=== PATIENT | female | born 1970 | race Caucasian/White ===

== ENCOUNTER 2016-09-16 08:29 | Emergency (ER) | payer MEDICARE, MEDICAID ==
[~2016-09-16] VITALS: Ht 170.2 cm; Wt 64.4 kg
--- NOTE | 2016-09-16 09:14 | RAD ---
Right hip, 2 views, 09/16/2016: History: Trauma, pain There is a comminuted fracture of the right iliac bone superolaterally. The hip joint is well maintained. No proximal femoral fracture is identified. IMPRESSION: Comminuted right iliac bone fracture.
[2016-09-16] MEDS ORDERED: IPRATRPIUM/ALBUTEROL 0.5/2.5MG 3 ML NEBU. NEB ONE (09:15)
[2016-09-16] MEDS ORDERED: KETOROLAC TROMETHAMINE 60 MG/2 ML INJ. IM ONE (09:15)
[2016-09-16 09:31] LABS: BASO % 1 % (0-3); EOS % 0 % (0-3); HEMATOCRIT 38.6 % (36.0-47.0); HEMOGLOBIN 13.4 g/dL (12.0-15.5); LYMPH # 0.2 x10^3/uL (1.0-4.8); LYMPH % 11 % (24-48); MEAN CORPUSCULAR HEMOGLOBIN 35 pg (25-35); MEAN CORPUSCULAR HGB CONC 35 g/dL (31-37); MEAN CORPUSCULAR VOLUME 100 fL (79-100); MONO % 6 % (0-9); NEUT % 81 % (31-73); PLATELET COUNT 99 x10^3/uL (140-400); RED BLOOD COUNT 3.86 x10^6/uL (3.50-5.40); RED CELL DISTRIBUTION WIDTH 16.4 % (11.5-14.5); WHITE BLOOD COUNT 2.2 x10^3/uL (4.0-11.0)
[2016-09-16] MEDS: FENTANYL PF 100 MCG/2 ML VIAL. IV PRN ×3 (09:31→12:30)
[2016-09-16 09:49] LABS: CALCIUM 8.8 mg/dL (8.5-10.1); CREATININE 0.6 mg/dL (0.6-1.0); GFR 108.1; POTASSIUM 3.7 mmol/L (3.5-5.1)
[2016-09-16 09:54] LABS: ALBUMIN 3.7 g/dL (3.4-5.0); ALBUMIN/GLOBULIN RATIO 0.9 (1.0-1.7); TOTAL BILIRUBIN 0.6 mg/dL (0.2-1.0); TOTAL PROTEIN 7.8 g/dL (6.4-8.2)
--- NOTE | 2016-09-16 10:59 | PHYS DOC ---
Past Medical History Past Medical History: Anxiety, Asthma, Bipolar, Depression, Seizure, Other Additional Past Medical Histor: LUNG DEFECT, CHRONIC BACK PAIN Past Surgical History: No Surgical History Alcohol Use: Occasionally Drug Use: None Adult General Chief Complaint Chief Complaint: HIP PAIN HPI HPI Patient is a 46 year old female brought to the ED from home by ambulance with the complaint of severe pain in the right hip area. Patient states yesterday she was going up steps into her home, she tripped and fell, she struck her right hip area on a step. She heard and felt a "pop" and it was very painful. She was not able to ambulate, had to crawl up the stairs and was helped into bed. This morning she was not able to get out of bed because of the pain and had to call 911. Patient denies injury elsewhere. She denies head injury. She denies previous injury to the right hip. Patient is a smoker. She has a history of asthma or wheezing. She also complains right now that she is short of air. No medications, allergic to sulfa. No PCP. Review of Systems Review of Systems Constitutional: Denies fever or chills [] Eyes: Denies change in visual acuity, redness, or eye pain [] HENT: Denies nasal congestion or sore throat [] Respiratory: Complains of shortness of breath and wheezing at this time. Cardiovascular: Denies chest pain GI: Denies abdominal pain, nausea, vomiting, bloody stools or diarrhea [] : Denies dysuria or hematuria [] Musculoskeletal: Right hip pain as in history of present illness Integument: Denies rash or skin lesions [] Neurologic: Denies headache, focal weakness or sensory changes [] Current Medications Current Medications Current Medications Medications (Trade) Dose Ordered Sig/Marina Start Time Stop Time Status Last Admin Dose Admin Albuterol/ Ipratropium (Duoneb) 3 ml 1X ONCE 09/16/16 09:15 09/16/16 09:16 DC 09/16/16 09:25 3 ML Fentanyl Citrate (Fentanyl 2ml Vial) 50 mcg PRN Q15MIN PRN 09/16/16 09:15 09/16/16 12:52 DC 09/16/16 12:30 50 MCG Ketorolac Tromethamine (Toradol Im) 60 mg 1X ONCE 09/16/16 09:15 09/16/16 09:15 DC Allergies Allergies Allergies Coded Allergies Type Severity Reaction Last Updated Verified Sulfa (Sulfonamide Antibiotics) Allergy Unknown Hives 09/22/13 Yes Physical Exam Physical Exam Constitutional: Well developed, well nourished, alert, mentating normally, yelling intermittently in pain, does appear mildly dyspneic. HENT: Normocephalic, atraumatic, bilateral external ears normal, poor dentition orally, nose normal. [] Eyes: conjunctiva normal, no discharge. [] Neck: Normal range of motion, no stridor. [] Cardiovascular:Heart rate regular rhythm, no murmur [] Lungs & Thorax: Good air movement throughout with expiratory wheezes present in all lung finn Abdomen: Bowel sounds normal, soft, no tenderness Skin: Warm, dry, no erythema, no rash. [] Back: No tenderness, no CVA tenderness. [] Extremities: Bilateral upper extremities and left lower extremity without tenderness or deformity. Right hip tender to palpation over the lateral aspect of the superior pelvis area. Lower over the hip joint is less tender. Patient is not able to tolerate range of motion testing of a right hip but she does A most comfortably supine with her right hip and right knee both flexed. Right knee has a bruise but nontender to palpation without deformity or effusion. Right foot is warm with good sensation and capillary refill less than 2 seconds. Neurologic: Alert and oriented X 3, normal motor function, normal sensory function, no focal deficits noted. [] [] Current Patient Data Vital Signs Vital Signs Date Time Temp Pulse Resp B/P Pulse Ox O2 Delivery O2 Flow Rate FiO2 09/16/16 11:00 104 20 165/89 93 Room Air 09/16/16 08:29 98.3 98.3 Lab Values Laboratory Tests Test 09/16/16 09:17 White Blood Count 2.2x10^3/uL (4.0-11.0) L Red Blood Count 3.86x10^6/uL (3.50-5.40) Hemoglobin 13.4g/dL (12.0-15.5) Hematocrit 38.6% (36.0-47.0) Mean Corpuscular Volume 100fL (79-100) Mean Corpuscular Hemoglobin 35pg (25-35) Mean Corpuscular Hemoglobin Concent 35g/dL (31-37) Red Cell Distribution Width 16.4% (11.5-14.5) H Platelet Count 99x10^3/uL (140-400) L Neutrophils (%) (Auto) 81% (31-73) H Lymphocytes (%) (Auto) 11% (24-48) L Monocytes (%) (Auto) 6% (0-9) Eosinophils (%) (Auto) 0% (0-3) Basophils (%) (Auto) 1% (0-3) Neutrophils # (Auto) 1.8x10^3uL (1.8-7.7) Lymphocytes # (Auto) 0.2x10^3/uL (1.0-4.8) L Monocytes # (Auto) 0.1x10^3/uL (0.0-1.1) Eosinophils # (Auto) 0.0x10^3/uL (0.0-0.7) Basophils # (Auto) 0.0x10^3/uL (0.0-0.2) Segmented Neutrophils % 78% (35-66) H Band Neutrophils % 8% (0-9) Lymphocytes % 13% (24-48) L Monocytes % 1% (0-10) Platelet Estimate Decreased (ADEQUATE) Sodium Level 136mmol/L (136-145) Potassium Level 3.7mmol/L (3.5-5.1) Chloride Level 97mmol/L (98-107) L Carbon Dioxide Level 27mmol/L (21-32) Anion Gap 12 (6-14) Blood Urea Nitrogen 3mg/dL (7-20) L Creatinine 0.6mg/dL (0.6-1.0) Estimated GFR (Cockcroft-Gault) 108.1 BUN/Creatinine Ratio 5 (6-20) L Glucose Level 98mg/dL (70-99) Calcium Level 8.8mg/dL (8.5-10.1) Total Bilirubin 0.6mg/dL (0.2-1.0) Aspartate Amino Transferase (AST) 46U/L (15-37) H Alanine Aminotransferase (ALT) 22U/L (14-59) Alkaline Phosphatase 77U/L (46-116) Total Protein 7.8g/dL (6.4-8.2) Albumin 3.7g/dL (3.4-5.0) Albumin/Globulin Ratio 0.9 (1.0-1.7) L Laboratory Tests 09/16/16 09:17 Laboratory Tests 09/16/16 09:17 EKG EKG [] Radiology/Procedures Radiology/Procedures X-rays of the right hip read by the radiologist. The right hip shows no fracture. There is a comminuted fracture of the right iliac bone. [] Course & Med Decision Making Course & Med Decision Making Pertinent Labs and Imaging studies reviewed. (See chart for details) 46-year-old female presents with severe right hip area pain after a fall yesterday, inability to ambulate. She was given some IV pain medicine. X-rays show a comminuted fracture of the right iliac bone superolaterally. I discussed the case with Dr. Earl, on-call for orthopedics, who also reviewed the x- rays. He told me that with this type of pelvic rim fracture, the patient may require surgery. She also needs a CT scan of the pelvis and right hip area for more detailed evaluation. The acetabulum may be involved. Orthopedics here at [facility] does not have the type of table that is required for surgery on the pelvis of this type. Dr. Earl recommended to transfer the patient to a facility that can provide pelvic surgery. 1023: I called the transfer line and spoke with the trauma transfer nurse. She called me back and accepted the patient on behalf of Dr. Dhaliwal. They do not have a bed at the moment but will be getting a bed assignment for the patient. I discussed with the patient that she will need to be transferred and why, she is agreeable to that, transfer arrangements were made, paperwork was completed. X-rays were sent to . The patient is hemodynamically stable. Labs do show low white count and low platelets, but not anemia or other significant acute abnormalities. [] Dragon Disclaimer Dragon Disclaimer This electronic medical record was generated, in whole or in part, using a voice recognition dictation system. Departure Departure Impression: Primary Impression: Pelvis fracture, right Disposition: 02 TRANSFER [facility] Condition: STABLE Referrals: NO PCP (PCP) AMANDA BURTON MD Sep 16, 2016 10:59
[2016-09-16 11:00] VITALS: BP 165/89
[2016-09-16 11:37] LABS: PLT ESTIMATE DECREASED (ADEQUATE)
== END 2016-09-16 12:40 | disposition short-term general hospital (02) ==
LOC: ER 08:29
DX: S32.301A Unspecified fracture of right ilium, initial encounter for closed fracture (principal); F31.9 Bipolar disorder, unspecified; J45.909 Unspecified asthma, uncomplicated; F41.9 Anxiety disorder, unspecified; G89.29 Other chronic pain; Z88.2 Allergy status to sulfonamides; W01.0XXA Fall on same level from slipping, tripping and stumbling without subsequent striking against object, initial encounter; Y93.89 Activity, other specified; Y99.8 Other external cause status; Y92.89 Other specified places as the place of occurrence of the external cause
CPT/HCPCS: 36415; 51702; 73502; 80053; 85007; 85027; 94250; 94640; 96374; 96376; 99285; J3010; J7620

== ENCOUNTER 2019-05-03 16:06 | Emergency (ER) | payer MEDICARE, MEDICAID ==
[~2019-05-03] VITALS: Ht 172.7 cm; Wt 64.4 kg
[~2019-05-03 16:06] MED LIST: HYDR-3164 PO; NAPR-683 PO; PENI500T PO
[2019-05-03 16:31] VITALS: BP 95/63
[2019-05-03] MEDS ORDERED: CHLO15MO2 SWSP (16:57)
[2019-05-03] MEDS ORDERED: PENI500T PO (16:57)
[2019-05-03] MEDS ORDERED: NAPR-514 PO (16:57)
--- NOTE | 2019-05-03 16:57 | PHYS DOC ---
Past Medical History Past Medical History: Anxiety, Asthma, Bipolar, Depression, Seizure, Other Additional Past Medical Histor: LUNG DEFECT, CHRONIC BACK PAIN Past Surgical History: No Surgical History Alcohol Use: Occasionally Drug Use: None Adult General Chief Complaint Chief Complaint: DENTAL PROBLEM HPI HPI Patient is a 48 year old female who presents to the emergency department with complaints of left upper dental pain that radiates to her left ear for the last 3-4 days. Patient reports a history of dental decay with multiple broken teeth. Patient denies any fever, cough, shortness of breath, sore throat, nausea, vomiting, diarrhea, wheezing, or abdominal pain. Patient denies any drainage or bleeding from her left ear. She states the dental pain increases when she tries to eat so she is only been drinking fluids for the last few days. She currently rates her pain a 8 out of 10 on the pain scale, she states that she took an Aleve at home prior to coming to the ER that did help a little bit. Patient denies any headache, dizziness, or vision changes. All other ROS is neg unless otherwise noted in HPI. Review of Systems Review of Systems See Above Allergies Allergies Allergies Coded Allergies Type Severity Reaction Last Updated Verified Sulfa (Sulfonamide Antibiotics) Allergy Unknown Hives 09/22/13 Yes Physical Exam Physical Exam See Above Constitutional: Well developed, well nourished, no acute distress, non-toxic appearance. [] HENT: Normocephalic, atraumatic, bilateral TMs normal, bilateral external ears normal, posterior pharynx normal, oropharynx moist, no oral exudates, nose normal; diffuse dental decay and broken teeth noted throughout entire mouth, no visible abscess in the left upper quadrant, moderate gingival erythema and edema in the left upper quadrant. [] Eyes: PERRLA, EOMI, conjunctiva normal, no discharge. [] Neck: Normal range of motion, no stridor. [] Cardiovascular:Heart rate regular rhythm Lungs & Thorax: Respirations even and unlabored, no retractions, no respiratory distress Skin: Warm, dry, no erythema, no rash. [] Extremities: No cyanosis, ROM intact Neurologic: Alert and oriented X 3, no focal deficits noted. [] Psychologic: Affect normal, judgement normal, mood normal. [] Current Patient Data Vital Signs Vital Signs Date Time Temp Pulse Resp B/P (MAP) Pulse Ox O2 Delivery O2 Flow Rate FiO2 05/03/19 16:31 98.3 87 18 95/63 (74) 97 Room Air 98.3 EKG EKG [] Radiology/Procedures Radiology/Procedures [] Course & Med Decision Making Course & Med Decision Making Pertinent Labs and Imaging studies reviewed. (See chart for details) [] Dragon Disclaimer Dragon Disclaimer This electronic medical record was generated, in whole or in part, using a voice recognition dictation system. Departure Departure Impression: Primary Impression: Infected dental caries Additional Impressions: Dentalgia Gingivitis, acute Disposition: HOME, SELF-CARE Condition: STABLE Referrals: JOSE ORLANDO MD (PCP) Patient Instructions: Dental Caries, Dental Pain, [id number], Gingivitis, [id number] Additional Instructions: Fill prescription(s) and use as directed. Follow up with dentist using the ref erral list provided. Return to the ER if symptoms worsen. Scripts Chlorhexidine Gluconate (PERIDEX) 15 Ml Mouthwash 15 ML SWSP BID for 7 Days, #473 ML 0 Refills Smock teeth before using to prevent staining. Swish for approximately 30 seconds before spitting. Prov: RICHIE MEDRANO APRN 05/03/19 Penicillin V Potassium (PENICILLIN V POTASSIUM) 500 Mg Tablet 1 TAB PO QID for 10 Days, #40 TAB 0 Refills Prov: RICHIE MEDRANO APRN 05/03/19 Naproxen (NAPROXEN) 500 Mg Tablet 1 TAB PO BID PRN for PAIN for 10 Days, #20 TAB 0 Refills Prov: RICHIE MEDRANO APRN 05/03/19 Problem Qualifiers RICHIE MEDRANO APRN May 03, 2019 16:57
== END 2019-05-03 17:09 | disposition home or self-care (01) ==
LOC: ER 16:06
DX: K04.7 Periapical abscess without sinus (principal); K05.00 Acute gingivitis, plaque induced; K08.89 Other specified disorders of teeth and supporting structures; J45.909 Unspecified asthma, uncomplicated; F31.9 Bipolar disorder, unspecified; G89.29 Other chronic pain; Z88.2 Allergy status to sulfonamides
CPT/HCPCS: 99283